=== PATIENT | male | born 1970 | race American Indian/Alaskan Native ===

== ENCOUNTER 2020-04-17 17:47 | Emergency (ER) | payer SELFPAY ==
[2020-04-17 18:11] VITALS: BP 158/91
[2020-04-17] MEDS ORDERED: KETOROLAC 60 MG/2 ML INJ IVP ONE (21:41)
[2020-04-17] MEDS ORDERED: SODIUM CHLORIDE 0.9% 1000 ML 1,000 ML IV ONE (21:41)
--- NOTE | 2020-04-17 21:44 | Emergency Department Report ---
ED General Adult HPI - General Chief complaint: Dyspnea/Respdistress Stated complaint: COVID SYM Time Seen by Provider: 04/17/20 21:12 Source: patient Mode of arrival: Ambulatory Limitations: No Limitations - History of Present Illness Initial comments: The patient presents to the emergency department with a chief complaint of shortness of breath and body aches have been present for the last couple of days. The patient states he is most concerned about the shortness of breath due to his history of diabetes and is concerned that he may have Covid. Patient also states his glucose levels have been elevated for the last couple of days secondary to not feeling well. Patient denies chest pain, abdominal pain, or headache. -: Gradual Severity scale (0 -10): 4 Quality: aching Consistency: constant Improves with: none Worsens with: none Associated Symptoms: denies other symptoms - Related Data Previous Rx's Medication Instructions Recorded Last Taken Type Insulin NPH/Regular [NovoLIN 70/30] 30 unit SUB-Q BIDDIAB #3 units 11/26/15 Unknown Rx Potassium Chloride [K-Dur] 20 meq PO QDAY #30 tablet 11/26/15 Unknown Rx lisinopriL [Zestril TAB] 10 mg PO QDAY #30 tablet 11/26/15 Unknown Rx Albuterol Mdi (or & Nicu Only) 2 puff IH Q4HR PRN #1 inhalation 04/17/20 Unknown Rx [ProAir HFA Inhaler] Ibuprofen [Motrin] 800 mg PO Q8HR PRN #30 tablet 04/17/20 Unknown Rx Allergies Allergy/AdvReac Type Severity Reaction Status Date / Time No Known Allergies Allergy Verified 11/21/15 13:50 ED Review of Systems ROS: Stated complaint: COVID SYM Other details as noted in HPI Comment: All other systems reviewed and negative Constitutional: denies: chills, fever Eyes: denies: eye pain, eye discharge, vision change ENT: denies: ear pain, throat pain Respiratory: shortness of breath. denies: cough, wheezing Cardiovascular: denies: chest pain, palpitations Endocrine: no symptoms reported Gastrointestinal: denies: abdominal pain, nausea, diarrhea Genitourinary: denies: urgency, dysuria Musculoskeletal: denies: back pain, joint swelling, arthralgia Skin: denies: rash, lesions Neurological: denies: headache, weakness, paresthesias Psychiatric: denies: anxiety, depression Hematological/Lymphatic: denies: easy bleeding, easy bruising ED Past Medical Hx - Past Medical History Previous Medical History?: Yes Hx Congestive Heart Failure: No Hx Diabetes: Yes (NEW ONSET) Hx Asthma: No Hx COPD: No Hx HIV: No - Surgical History Past Surgical History?: No - Social History Smoking Status: Never Smoker - Medications Home Medications: Home Medications Medication Instructions Recorded Confirmed Last Taken Type Insulin NPH/Regular [NovoLIN 70/30] 30 unit SUB-Q BIDDIAB #3 units 11/26/15 Unknown Rx Potassium Chloride [K-Dur] 20 meq PO QDAY #30 tablet 11/26/15 Unknown Rx lisinopriL [Zestril TAB] 10 mg PO QDAY #30 tablet 11/26/15 Unknown Rx Albuterol Mdi (or & Nicu Only) 2 puff IH Q4HR PRN #1 inhalation 04/17/20 Unknown Rx [ProAir HFA Inhaler] Ibuprofen [Motrin] 800 mg PO Q8HR PRN #30 tablet 04/17/20 Unknown Rx ED Physical Exam - General Limitations: No Limitations General appearance: alert, in no apparent distress - Head Head exam: Present: atraumatic, normocephalic - Eye Eye exam: Present: normal appearance, PERRL, EOMI - ENT ENT exam: Present: mucous membranes dry - Neck Neck exam: Present: normal inspection - Respiratory Respiratory exam: Present: decreased breath sounds. Absent: respiratory distress - Cardiovascular Cardiovascular Exam: Present: normal rhythm, tachycardia. Absent: systolic murmur, diastolic murmur, rubs, gallop - GI/Abdominal GI/Abdominal exam: Present: soft, normal bowel sounds. Absent: distended, tenderness - Rectal Rectal exam: Present: deferred - Extremities Exam Extremities exam: Present: normal inspection - Back Exam Back exam: Present: normal inspection - Neurological Exam Neurological exam: Present: alert, oriented X3, CN II-XII intact. Absent: motor sensory deficit - Psychiatric Psychiatric exam: Present: normal affect, normal mood - Skin Skin exam: Present: warm, dry, intact, normal color. Absent: rash ED Course Vital Signs 04/17/20 04/17/20 18:08 22:13 Temperature 99.5 F Pulse Rate 122 H Respiratory 20 20 Rate Blood Pressure 158/91 [Right] O2 Sat by Pulse 96 Oximetry ED Medical Decision Making - Lab Data Result diagrams: 04/17/20 22:00 04/17/20 22:00 Lab Results 04/17/20 04/17/20 04/17/20 Range/Units 18:13 22:00 22:00 WBC 7.9 (4.5-11.0) K/mm3 RBC 5.36 H (3.65-5.03) M/mm3 Hgb 15.4 H (11.8-15.2) gm/dl Hct 45.0 (35.5-45.6) % MCV 84 (84-94) fl MCH 29 (28-32) pg MCHC 34 (32-34) % RDW 13.1 L (13.2-15.2) % Plt Count 286 (140-440) K/mm3 Lymph % (Auto) 13.3 L (13.4-35.0) % [place] % (Auto) 7.4 H (0.0-7.3) % Eos % (Auto) 0.1 (0.0-4.3) % Baso % (Auto) 0.6 (0.0-1.8) % Lymph # (Auto) 1.0 L (1.2-5.4) K/mm3 [place] # (Auto) 0.6 (0.0-0.8) K/mm3 Eos # (Auto) 0.0 (0.0-0.4) K/mm3 Baso # (Auto) 0.0 (0.0-0.1) K/mm3 Seg Neutrophils % 78.6 H (40.0-70.0) % Seg Neutrophils # 6.2 (1.8-7.7) K/mm3 Estimated GFR > 60 ml/min BUN/Creatinine Ratio 10 % POC Glucose 208 H (70-105) mg/dL Albumin/Globulin Ratio 1.0 % - Radiology Data Radiology results: report reviewed - Medical Decision Making Patient received 1 L of fluid and his heart rate was 101 bpm when I entered the room on reevaluation at 10:45 PM Discussed results with patient including readings of his chest x-ray and his laboratory values. Critical care attestation.: If time is entered above; I have spent that time in minutes in the direct care of this critically ill patient, excluding procedure time. ED Disposition Clinical Impression: Dyspnea, Anosmia, [place] Disposition: DC- TO HOME OR SELFCARE Is pt being admited?: No Does the pt Need Aspirin: No Condition: Stable Instructions: Shortness of Breath, Adult, [id number], Shortness of Breath, Adult Additional Instructions: Please get tested for Covid as we discussed Please return if symptoms become worse Prescriptions: Ibuprofen [Motrin] 800 mg PO Q8HR PRN #30 tablet PRN Reason: Pain Albuterol Mdi (or & Nicu Only) [ProAir HFA Inhaler] 2 puff IH Q4HR PRN #1 inhalation PRN Reason: Shortness Of Breath Referrals: BRIE WALLACE MD [Primary Care Provider] - 3-5 Days Time of Disposition: 23:01
--- NOTE | 2020-04-17 21:46 | XRay Report ---
CHEST 2 VIEWS, 04/17/2020 8:55 PM INDICATION: Chest pain COMPARISON: None FINDINGS: Support devices: None. Heart: The cardiac silhouette is normal in size. Lungs/pleura: The lungs are clear of focal airspace disease or significant pleural effusion. Additional findings: No significant acute abnormality. IMPRESSION: 1. No evidence of acute cardiopulmonary process. Signer Name: Patt Hernandez MD Signed: 04/17/2020 9:41 PM Workstation Name: [id number]
[2020-04-17 22:19] LABS: Basophils % (Auto) 0.6 % (0.0-1.8); Eosinophils % (Auto) 0.1 % (0.0-4.3); Hemoglobin 15.4 gm/dl (11.8-15.2); Lymphocytes % (Auto) 13.3 % (13.4-35.0); Mean Corpuscular HGB Conc 34 % (32-34); Mean Corpuscular Volume 84 fl (84-94); Monocytes # (Auto) 0.6 K/mm3 (0.0-0.8); Monocytes % (Auto) 7.4 % (0.0-7.3); Platelet Count 286 K/mm3 (140-440); Red Blood Count 5.36 M/mm3 (3.65-5.03); Red Cell Distribution Width 13.1 % (13.2-15.2)
[2020-04-17 22:40] LABS: Alanine Aminotransferase 23 units/L (7-56); BUN/Creatinine Ratio 10; Blood Urea Nitrogen 12 mg/dL (9-20); Hemolysis Index 13
== END 2020-04-17 23:19 | disposition home or self-care (01) ==
LOC: ED 17:47
DX: R06.00 Dyspnea, unspecified (principal); R43.0 Anosmia; R43.2 Parageusia; E11.9 Type 2 diabetes mellitus without complications; Z79.899 Other long term (current) drug therapy; Z79.4 Long term (current) use of insulin
CPT/HCPCS: 36415; 71046; 80053; 82962; 85025; 96361; 96374; 99284; J1885; J7030